=== PATIENT | female | born 1945 | race Two or more races ===

== ENCOUNTER 2016-03-25 12:08 | Emergency (ER) | payer OTHER ==
[~2016-03-25] VITALS: Ht 157.5 cm; Wt 88.0 kg
[2016-03-25 12:08] VITALS: BP 159/84
[2016-03-25] MEDS ORDERED: LORAZEPAM 1 MG TABLET ONE (12:26)
[2016-03-25] MEDS ORDERED: LORAZEPAM 1 MG TABLET PO ONE (12:30)
== END 2016-03-25 12:52 | disposition home or self-care (01) ==
LOC: ER 12:11
DX: R00.2 Palpitations (principal); F41.9 Anxiety disorder, unspecified; I10 Essential (primary) hypertension; Z88.6 Allergy status to analgesic agent
CPT/HCPCS: 99284; A4606; Z7610